=== PATIENT | female | born 2005 | race Caucasian/White ===

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

== ENCOUNTER → 2024-07-25 | Outpatient (CLI) | payer OTHER, SELFPAY ==
[2024-07-25 10:42] LABS: Erythrocyte Sedimentation Rate 1 mm/hr (0-30)
[2024-07-25 10:45] LABS: Absolute Lymphocyte Count 1.41 X10^3/uL (0.83-4.51); Absolute Neutrophil Count 2.3 X10^3/uL (2.0-7.7); Basophil# 0.02 X10^3/uL; Basophil% 0.5 % (0-1); Eosinophils% 2.5 % (0-5); Hemoglobin 12.3 g/dL (12.0-15.0); Lymphocyte # 1.41 X10^3/ul (0.83-4.51); Lymphocyte % 34.7 % (19-41); Mean Corp Hgb Conc 34.2 g/dL (32-36); Mean Corpuscular Hgb 29.7 pg (27.0-32.0); Mean Platelet Vol. 9.5 fl (6.2-12.0); Monocyte# 0.24 X10^3/uL; Monocyte% 5.9 % (0-10); NRBC Flagged by Analyzer 0 % (0-5); Neutrophil # 2.28 X10^3/uL (2.7-7.7); Neutrophil % 56.2 % (47-70); Platelet Count 322 K/mm3 (150-450); RBC Distribution Width CV 12.2 % (11.6-14.6); RBC Distribution Width SD 38.6 fl (35.1-43.9); Red Blood Count 4.14 M/mm3 (4.2-5.4); White Blood Count 4.1 K/mm3 (4.4-11.0)
[2024-07-25 11:13] LABS: ALB/GLOB Ratio 1.1 RATIO (0.9-2.4); AST(SGOT) 9 U/L (15-37); Alanine Aminotransfer ALT/SGPT 22 U/L (13-56); Albumin, Serum 3.8 g/dL (3.2-5.0); Alkaline Phosphatase 54 U/L (45-117); Anion Gap 5 (5-15); BUN 11 mg/dL (7-18); BUN/Creat Ratio 14.5 RATIO (10-20); Calcium,Total 8.9 mg/dL (8.5-10.1); Chloride 109 mmol/L (98-107); Creatinine, Serum 0.76 mg/dL (0.55-1.02); EST Glomerular Filtration Rate 104 mL/min (>60); Est Glom Filt Rate - Afr Amer 126 mL/min (>60); Globulin 3.4 g/dL (2.2-4.2); Glucose 108 mg/dL (74-106); Potassium 3.8 mmol/L (3.5-5.1); Protein, Total 7.2 g/dL (6.4-8.2); Sodium Level 139 mmol/L (136-145); T4 Free Direct 0.92 ng/dL (0.76-1.46)
[2024-07-26 14:10] LABS: CMV Acute Antibody IgM < 30.0 AU/mL (0.0-29.9); CMV Antibody IgG < 0.60 U/mL (0.00-0.59); Lyme Scn Total Ab w/Rflx Negative (Negative)
== END | disposition home or self-care (01) ==
PROVIDERS: PCP Family Medicine; Visit Provider Family Medicine
DX: R53.83 Other fatigue (principal)
CPT/HCPCS: 80053; 84439; 84443; 85025; 85652; 86618; 86644; 86645

== ENCOUNTER 2024-08-16 12:18 | Outpatient (CLI) | payer OTHER, SELFPAY ==
[2024-08-16 15:19] LABS: Absolute Lymphocyte Count 1.73 X10^3/uL (0.83-4.51); Absolute Neutrophil Count 2.9 X10^3/uL (2.0-7.7); Basophil# 0.02 X10^3/uL; Basophil% 0.4 % (0-1); Hematocrit 34.6 % (37-47); Lymphocyte # 1.73 X10^3/ul (0.83-4.51); Lymphocyte % 34.2 % (19-41); Mean Corp Hgb Conc 34.7 g/dL (32-36); Mean Corpuscular Hgb 30.2 pg (27.0-32.0); Mean Corpuscular Volume 86.9 fL (81-99); Mean Platelet Vol. 9.1 fl (6.2-12.0); Monocyte# 0.32 X10^3/uL; Monocyte% 6.3 % (0-10); NRBC Flagged by Analyzer 0 % (0-5); Neutrophil # 2.88 X10^3/uL (2.7-7.7); Neutrophil % 56.9 % (47-70); Platelet Count 310 K/mm3 (150-450); RBC Distribution Width SD 38.2 fl (35.1-43.9); Red Blood Count 3.98 M/mm3 (4.2-5.4); White Blood Count 5.1 K/mm3 (4.4-11.0)
[2024-08-16 15:37] LABS: Vitamin B12 600 pg/mL (211-911); Vitamin D,25 Hydroxy 17.6 ng/mL
== END 2024-08-16 23:59 | disposition home or self-care (01) ==
LOC: MFPLAB 12:22
PROVIDERS: PCP Family Medicine; Visit Provider Family Medicine
DX: R53.83 Other fatigue (principal)
CPT/HCPCS: 36415; 82306; 82607; 85025